=== PATIENT | male | born 1970 ===

== ENCOUNTER 2021-08-06 10:47 | Outpatient (CLI) | payer BC, SELFPAY ==
--- NOTE | ~2021-08-06 | XR_ITS ---
XR finger 1st LT min 2V 08/06/2021 11:12 Indication: Left first finger pain Procedure: 4 views left first finger Comparison: No prior studies for comparison. Findings: No fracture, subluxation or dislocation. There are mild degenerative changes of the triscap he and first carpometacarpal joints. No significant soft tissue abnormality. No foreign bodies. Impression: 1: Mild polyarticular osteoarthritis. Reviewed, dictated and finalized at location A. Impression: 1: Mild polyarticular osteoarthritis.
--- NOTE | ~2021-08-06 | XR_ITS ---
XR hip BI 2V w AP pelvis 08/06/2021 11:12 Indication: Bilateral hip pain Procedure: AP pelvis and 2 views each hip Comparison: No prior studies for comparison. Findings: There is mild osteoarthritis of the hips. There are benign herniation pits in the femoral n ecks. No fracture or traumatic malalignment. Pelvic rings are intact. Sacral foramen are symmetric. T here are surgical changes in the right mid abdomen. Impression: 1: Mild osteoarthritis of the hips. Reviewed, dictated and finalized at location A. Impression: 1: Mild osteoarthritis of the hips.
== END 2021-08-06 10:48 | disposition home or self-care (01) ==
LOC: ANHIMG 10:53
PROVIDERS: PCP Physician Assistant; Visit Provider Physician Assistant
DX: M18.12 Unilateral primary osteoarthritis of first carpometacarpal joint, left hand (principal); M16.0 Bilateral primary osteoarthritis of hip; M19.042 Primary osteoarthritis, left hand
CPT/HCPCS: 73140; 73521

== ENCOUNTER 2022-06-10 19:35 | Emergency (ER) | payer BC, SELFPAY ==
[2022-06-10 19:40] VITALS: BP 155/100; PULSE 68; RESP 18; TEMP 36.9; O2SAT 99
--- NOTE | 2022-06-10 19:42 | ED.DENTAL ---
HPI - Dental/Oral General Chief complaint: Dental/Oral Stated complaint: Dental Pain Time Seen by Provider: 06/10/22 19:41 Source: patient Mode of arrival: ambulatory Limitations: no limitations History of Present Illness HPI Narrative: 52-year-old male presents with concern for dental infection. He reports right upper dental pain and right face swelling. Reports symptoms started today. Reports he has bad teeth. He denies taking anything for his symptoms MD Complaint: tooth pain Related Data Allergies Allergy/AdvReac Type Severity Reaction Status Date / Time No Known Allergies Allergy Verified 06/10/22 19:39 Review of Systems Review of Systems: CONSTITUTIONAL: Denies malaise, chills, sweats, or fever. EYES: Denies visual changes ENT: Denies rhinorrhea, congestion, sinus pain, otalgia or sore throat. Reports right upper dental pain and facial swelling CARDIOVASCULAR: Denies chest pain, palpitations RESPIRATORY: Denies cough or dyspnea. SKIN: Denies rash or itching. MUSCULOSKELETAL: Denies myalgia. NEUROLOGIC: Denies numbness, weakness, or headache. All systems reviewed & are unremarkable except as noted in HPI and below PMFSH Past Medical History Medical History (Updated 06/10/22 @ 19:49 by Nimco [place] NP) Primary osteoarthritis of right knee Family History Family History (System 01/19/19 @ 14:24 by Magnolia Moyer) Mother Depression Family history of migraine headaches Family history of mental disorder Father Family history of alcoholism Family history of malignant neoplasm Family history of chronic obstructive pulmonary disease Social History Social History (System 01/19/19 @ 14:24 by Magnolia Moyer) Smoking status: Current every day smoker Alcohol intake: current Comments At time of signature, agree with nursing past medical, surgical, social and family history. There is no relevant family history pertinent to the presenting complaint Exam Narrative: GENERAL: Well-appearing, well-nourished, and in no acute distress. HEAD: Normocephalic, atraumatic. EYES: PERRLA, sclera clear ENT: Nares clear, turbinates pink, no rhinorrhea or epistaxis. Mucous membranes moist. TM pearly garcia with sharp light reflex bilaterally; no tragal tenderness. Oropharynx without erythema or lesions. Tonsils not enlarged and without exudate. Right upper missing teeth, broken teeth, caries, pain above tooth number 4, facial tenderness and swelling noted NECK: Supple. No lymphadenopathy. CHEST: No respiratory distress. Speaks in full sentences. HEART: Regular rate and rhythm. SKIN: Warm, dry, no visible rash. NEURO: Alert and oriented x3. PSYCH: Normal mood and affect Course Course Emergency Course: Advised patient that if his symptoms do not improve he needs to go to the emergency room. Advised him the importance of seeing a dentist as soon as possible. Patient is aware of diagnosis, understands and agrees to treatment plan. Anticipatory guidance given. Patient agrees to follow-up as directed and is aware of reasons to seek care at the emergency department. Portions of this record may have been created with voice recognition software Level of Care: Express Care Visit Vital Signs Vital signs: Reviewed. MDM - Dental/Oral MDM Narrative Medical decision making narrative: Patients pain and complaint coupled with physical findings are consistant with dentalgia. There are no focal signs of space occupying lesions that are compromising to the airway; no dysphagia, odynophagia, dysphonia, or dyspnea. No uvular deviation or soft palate edema. Patient is non-toxic appearing. The floor of the mouth is soft with no signs of Hermelindo's Angina; no induration below mandible, no neck pain. Patient is without trismus or drooling and able to swallow secretions. Patient is felt appropriate for discharge home with dental follow up. Differential Diagnosis Differential diagnosis: Likely gingival abscess, dental caries
== END 2022-06-10 19:53 | disposition home or self-care (01) ==
PROVIDERS: Emergency Provider Nurse Practitioner; PCP Physician Assistant
DX: K04.7 Periapical abscess without sinus (principal); M17.11 Unilateral primary osteoarthritis, right knee; F17.200 Nicotine dependence, unspecified, uncomplicated
CPT/HCPCS: 99213; G0463

== ENCOUNTER 2024-09-21 15:28 | Emergency (ER) | payer BC, SELFPAY ==
--- NOTE | ~2024-09-21 | XR_ITS ---
XR foot RT min 3V 09/21/2024 15:46 Indication: Right foot pain Procedure: 4 views right foot Comparison: No prior studies for comparison. Findings: There is a comminuted intra-articular minimally displaced fracture of the first distal phal anx. Lisfranc joint intact. There is mild osteoarthritis of the first MTP joint. Impression: 1: Comminuted mildly displaced intra-articular fracture right first distal phalanx. Reviewed, dictated and finalized at location B. Impression: 1: Comminuted mildly displaced intra-articular fracture right first distal phal anx.
[2024-09-21 15:38] VITALS: BP 145/105; PULSE 81; RESP 16; TEMP 36.4; O2SAT 100
--- NOTE | 2024-09-21 15:46 | ED_ITS ---
HPI - Extremity Injury (Lower) General Chief Complaint: Extremity Injury, Lower Stated Complaint: Right Foot Toe Pain Time Seen by Provider: 09/21/24 15:45 Source: patient and RN notes reviewed Mode of arrival: ambulatory Limitations: no limitations History of Present Illness HPI Narrative: 54-year-old male Presents to [facility] complaining of injury to right foot. Patient reports kick in a tree stump approximately 3 days ago. Patient said he kept it because he was trying to get it out of the ground dog it out deep enough out. Patient reports pain to his 1st through 4th toes he reports swelling and bruising throughout the distal part of his foot. Patient's has been taking Tylenol or ibuprofen with relief. Patient denies any numbness, tingling or any other injuries. Patient denies any significant past medical history. Related Data Home Medications ?Medication ?Instructions ?Recorded ?Confirmed ?Last Taken ?Type atorvastatin 40 mg tablet mg 09/21/24 Unknown History losartan 100 tablet 09/21/24 Unknown History mg-hydrochlorothiazide 12.5 mg tablet Allergies Allergy/AdvReac Type Severity Reaction Status Date / Time No Known Allergies Allergy Verified 09/21/24 15:34 Review of Systems Review of Systems: CONSTITUTIONAL: Denies fever, chills, or sweats. EYES: Denies visual changes, redness, or discharge. ENT: Denies rhinorrhea, congestion, sore throat, or otalgia. CARDIOVASCULAR: Denies chest pain, palpitations, or edema. RESPIRATORY: Denies cough or dyspnea. GASTROINTESTINAL: Denies abdominal pain, nausea, vomiting, or diarrhea. GENITOURINARY: Denies dysuria or hematuria. SKIN: Denies rash, wound, or itching. MUSCULOSKELETAL: Denies back pain, joint pain, or myalgia. Right foot/toe pain and injury. NEUROLOGIC: Denies headache, numbness, or weakness. PSYCHIATRIC: Denies anxiety or depression. All other systems reviewed are negative, except as documented in HPI. [facility] Past Medical History Medical History Primary osteoarthritis of right knee Family History Family History Mother Depression Family history of migraine headaches Family history of mental disorder Father Family history of alcoholism Family history of malignant neoplasm Family history of chronic obstructive pulmonary disease Social History Social History Smoking status: Current every day smoker Alcohol intake: current Comments At the time of my signature, I reviewed and agree with the nursing past medical, surgical, social, and family history. There is no relevant family history pertinent to the patient complaint. Exam Narrative: GENERAL: This is a well-nourished, well-developed adult, in no apparent distress. They are non ill-appearing, nontoxic appearing. HEAD: normocephalic, atraumatic. EYES: Sclera clear/white. Vision is grossly intact. Conjunctiva normal. Extraocular movement intact. EARS: External ears normal Hearing grossly intact. NOSE: External nose normal THROAT: Mucous membranes moist NECK: Neck supple CARDIOVASCULAR: Regular rate and rhythm RESPIRATORY: Respiratory rate normal, respiratory effort nonlabored, no respiratory distress NEURO: awake, alert, and oriented to person, place and time. There were no obvious focal neurologic abnormalities. EXTREMITIES: Right foot: No obvious deformity,. There is bruising swelling throughout the distal portion of patient's foot on with pain and swelling through the 1st and 4th toes. Normal dorsiflexion and plantar flexion. Patient is able to wiggle his toes. Tenderness to palpation throughout the 1st through 4th toe is through the dorsal distal surface of foot. Diffuse tendern ess to palpation to the distal phalanx of the great toe. Capillary refill less than 3 seconds. Right pedal Pulse 2 +palpable. Normal sensation. Neurovascular status intact distal injury. BACK: Nontender without deformity. Course Course Emergency Course: Portions of this record may have been created with voice recognition software Level of Care: Express Care Visit Vital Signs Vital signs: Vital Signs Temperature 97.6 F 09/21/24 15:38 Pulse Rate 81 09/21/24 15:38 Respiratory Rate 16 09/21/24 15:38 Blood Pressure 145/105 H 09/21/24 15:38 Pulse Oximetry 100 09/21/24 15:38 Oxygen Delivery Room Air 09/21/24 15:38 Temperature 97.6 F 09/21/24 15:38 Pulse Rate 81 09/21/24 15:38 Respiratory Rate 16 09/21/24 15:38 Blood Pressure 145/105 H 09/21/24 15:38 Pulse Oximetry 100 09/21/24 15:38 Oxygen Delivery Room Air 09/21/24 15:38 Reviewed Procedures Orthopedic Splinting/Casting Injury #1: Splinting/Casting Date: 09/21/24 Splinting/Casting Time: 16:36 Side: right Lower Extremity Injury Location: toe (Right great toe) Lower Extremity Immobilizer: posterior splint Splint: customized in ED OCL: short leg Pre-Procedure Neuro Vascular Exam: normal Post-Procedure Neuro Vascular Exam: normal Other Orthopedic Equipment: crutches Additional Comments: Patient tolerated procedure well. MDM - Extremity Injury (Lower) MDM Narrative Medical decision making narrative: X-ray right foot mild displaced comminuted fracture of the distal phalanx of the right great toe. Patient placed in posterior short-leg given crutches and was told to remain nonweightbearing until he is seen by Ortho or podiatry. Discussed physical exam findings. Advised supportive measures and signs/symptoms to go to the ER. Pt is appropriate for outpt treatment and f/u. Differential Diagnosis Differential diagnosis: Likely other (Toe fracture, foot fracture, foot sprain, toe sprain) Imaging Data Radiologist's impression: ITS Impressions Foot X-Ray 09/21/24 16:09 Impression: 1: Comminuted mildly displaced intra-articular fracture right first distal phalanx. Critical Care Time Critical Care Time Critical Care Time: No Discharge Plan Discharge Clinical Impression: Closed fracture of distal phalanx of great toe Qualifiers: Encounter type: initial encounter Fracture alignment: displaced Laterality: right Qualified Code(s): S92.421A - Displaced fracture of distal phalanx of right great toe, initial encounter for closed fracture Patient Disposition: Home Condition: Stable Instructions: Toe Fracture (ED) Additional Instructions: The x-ray right foot shows a fracture to the distal part of your right great toe. Please wear the splint at all times and keep it dry. Please cover while showering. Rest and elevate the leg; do not bear weight on your right foot. Use crutches did move around. Apply ice 15-20 minute intervals several times a day Motrin 600mg -800mg every 6 to 8 hours, alternate with Tylenol 1000mg every 6 to 8 hours as needed Follow up with orthopedist or him manager in 3-5 days for further evaluation and management. If you develop disproportionate severe pain, worsening swelling, cold or blue toes, numbness or tingling, any serious concerns please go to the ER imm ediately. Patient Language: Persian Prescriptions: No Action atorvastatin 40 mg tablet losartan-hydrochlorothiazide 100-12.5 mg tablet Follow-up/Referrals: Aakash Sheikh DPM [Physician] - Clement,ALEISHA Ch [Primary Care Provider] - Juan Suarez Jr., DPM [Physician] - De Flynn MD [Physician] - 3 Days Stand Alone Forms: Work/School Release IP Time of Disposition: 16:26
== END 2024-09-21 16:47 | disposition home or self-care (01) ==
PROVIDERS: PCP Physician Assistant
DX: S92.421A Displaced fracture of distal phalanx of right great toe, initial encounter for closed fracture (principal); W22.09XA Striking against other stationary object, initial encounter; M17.11 Unilateral primary osteoarthritis, right knee; F17.200 Nicotine dependence, unspecified, uncomplicated
CPT/HCPCS: 29515; 73630; 99214; G0463